=== PATIENT | male | born 1965 | race Caucasian/White ===

== ENCOUNTER → 2023-09-14 10:53 | Outpatient (REF) | payer OTHER, SELFPAY | LOC: HWRAD 10:53 | PROVIDERS: ATTENDING PHYSICIAN Family Medicine | DX: M54.50 Low back pain, unspecified (principal); G89.29 Other chronic pain | CPT/HCPCS: 72110 ==

== ENCOUNTER → 2024-07-12 08:52 | Outpatient (REF) | payer OTHER, SELFPAY | LOC: HWRAD 08:52 | PROVIDERS: ATTENDING PHYSICIAN Family Medicine | DX: Z87.891 Personal history of nicotine dependence (principal) | CPT/HCPCS: 71271 ==

== ENCOUNTER → 2025-06-05 11:01 | Outpatient (REF) | payer OTHER, SELFPAY | LOC: RAD 11:01 | PROVIDERS: ATTENDING PHYSICIAN Family Medicine | DX: M25.562 Pain in left knee (principal) | CPT/HCPCS: 73564 ==

== ENCOUNTER → 2025-06-21 10:44 | Outpatient (REF) | payer OTHER, SELFPAY | LOC: RAD 10:44 | PROVIDERS: ATTENDING PHYSICIAN Family Medicine | DX: M25.552 Pain in left hip (principal) | CPT/HCPCS: 73502 ==